=== PATIENT | male | born 1945 | race Caucasian/White ===

== ENCOUNTER 2023-04-23 08:07 | Outpatient (RCR) | payer MEDICARE, OTHER, SELFPAY | END 2023-06-08 12:11 | disposition home or self-care (01) | LOC: HO.WCC 08:07 | PROVIDERS: PCP Internal Medicine; Visit Provider Physician Assistant | DX: E11.621 Type 2 diabetes mellitus with foot ulcer (principal); L97.522 Non-pressure chronic ulcer of other part of left foot with fat layer exposed | CPT/HCPCS: 11042; 97597; 99212 ==